=== PATIENT | female | born 1990 | race African-American/Black ===

== ENCOUNTER 2021-12-23 16:33 | Emergency (ER) | payer OTHER ==
[2021-12-23 16:41] VITALS: BP 100/64; PULSE 78; TEMP 98.6; BMI 34.9
[2021-12-23] MEDS ORDERED: METOCLOPRAMIDE HCL INJECTION 10 MG/2 ML VIAL IVPUSH ONE (17:17)
[2021-12-23] MEDS ORDERED: ACETAMINOPHEN 1000 MG/100 ML BAG IVPB ONE (17:17)
[2021-12-23] MEDS ORDERED: SODIUM CHLORIDE 1,000 ML IV STA (17:18)
[2021-12-23] MEDS ORDERED: ACETAMINOPHEN INJECTION 100 ML IVPB ONE (17:24)
[2021-12-23] MEDS ORDERED: METOCLOPRAMIDE HCL INJECTION 10 MG/2 ML VIAL ONE (17:24)
== END 2021-12-23 19:18 | disposition home or self-care (01) ==
LOC: JERFT 16:33
PROC: 3E033GC Introduction of Other Therapeutic Substance into Peripheral Vein, Percutaneous Approach (ICD-10-PCS; principal; 2021-12-23)
DX: G43.909 Migraine, unspecified, not intractable, without status migrainosus (principal); L30.9 Dermatitis, unspecified
CPT/HCPCS: 84703; 99284-25

== ENCOUNTER 2022-01-10 08:36 | Emergency (ER) | payer OTHER ==
[2022-01-10 08:47] VITALS: BP 105/61; PULSE 69; TEMP 97.9; BMI 34.9
[2022-01-10] MEDS ORDERED: ACETAMINOPHEN 1000 MG/100 ML BAG IVPB ONE (09:21)
[2022-01-10] MEDS ORDERED: ACETAMINOPHEN INJECTION 100 ML IVPB ONE (09:49)
[2022-01-10 10:37] LABS: PH,URINE 5.5 (5.0-8.0); URINE APPEARANCE CLEAR; URINE BILIRUBIN NEGATIVE (NEGATIVE); URINE COLOR YELLOW; URINE GLUCOSE (UA) NEGATIVE (NEGATIVE); URINE KETONE NEGATIVE (NEGATIVE); URINE LEUK ESTERASE NEGATIVE (NEGATIVE); URINE NITRITE NEGATIVE (NEGATIVE); URINE PROTEIN NEGATIVE (NEGATIVE); URINE UROBILINOGEN 0.2 mg/dL (0.2-1.0)
[2022-01-10 10:57] LABS: BASO % 0.3 % (0-2.0); EOS % 2.8 % (0-4.5); HEMATOCRIT 40.1 % (32.4-45.2); HEMOGLOBIN 12.9 GM/dL (10.7-15.3); LYMPH % 16.9 % (8-40); MCH 27.6 pg (25.7-33.7); MCHC 32.3 g/dl (32.0-36.0); MEAN CELL VOLUME 85.7 fl (80-96); MEAN PLT VOLUME 9.5 fl (7.5-11.1); MONO % 5.5 % (3.8-10.2); NEUT % 74.5 % (42.8-82.8); PLATELET COUNT 205 10^3/uL (134-434); RBC 4.68 M/mm3 (3.60-5.2); RDW 13.3 % (11.6-15.6); WHITE BLOOD COUNT 7.6 K/mm3 (4.0-10.0)
[2022-01-10 11:21] LABS: CHLORIDE 106 mmol/L (98-107); SODIUM 138 mmol/L (136-145)
[2022-01-10 11:23] LABS: ANION GAP 6 MMOL/L (8-16); BLOOD UREA NITROGEN 9.7 mg/dL (7-18); CALCIUM 8.9 mg/dL (8.5-10.1); CO2 26 mmol/L (21-32); GLUCOSE,RANDOM 83 mg/dL (74-106)
[2022-01-10 11:24] LABS: ALBUMIN 3.6 g/dl (3.4-5.0)
[2022-01-10 11:26] LABS: CREATININE 0.6 mg/dL (0.55-1.3); SGOT/AST 13 U/L (15-37)
[2022-01-10 11:28] LABS: BILIRUBIN,TOTAL 0.4 mg/dL (0.2-1)
[2022-01-10 11:29] LABS: ALK PHOS 57 U/L (45-117)
[2022-01-10 11:49] LABS: SGPT/ALT 18 U/L (13-61)
[2022-01-10] MEDS ORDERED: morphine CARPU-JECT 2 MG/1 ML DISP.SYRIN IVPUSH ONE (13:29)
== END 2022-01-10 14:00 | disposition home or self-care (01) ==
LOC: JER 08:36
PROC: 3E0333Z Introduction of Anti-inflammatory into Peripheral Vein, Percutaneous Approach (ICD-10-PCS; principal; 2022-01-10)
PROC: 3E033NZ Introduction of Analgesics, Hypnotics, Sedatives into Peripheral Vein, Percutaneous Approach (ICD-10-PCS; 2022-01-10)
DX: R10.2 Pelvic and perineal pain (principal)
CPT/HCPCS: 36415; 76830-TC; 80053; 81003; 84702; 85025; 87086; 99284-25

== ENCOUNTER 2022-01-15 10:58 | Emergency (ER) | payer OTHER ==
[2022-01-15 11:10] VITALS: BP 98/51; PULSE 89; TEMP 98.1; BMI 34.9
[2022-01-15] MEDS ORDERED: ONDANSETRON 4 MG/2 ML VIAL IVPUSH ONE (12:28)
[2022-01-15] MEDS ORDERED: morphine CARPU-JECT 4 MG/1 ML DISP.SYRIN IVPUSH ONE ×2 (12:28→14:21)
[2022-01-15] MEDS ORDERED: SODIUM CHLORIDE 1,000 ML IV STA (12:30)
[2022-01-15] MEDS ORDERED: morphine SULFATE 4 MG/ML VIAL ONE ×2 (12:31→14:56)
[2022-01-15] MEDS ORDERED: ONDANSETRON 4 MG/2 ML VIAL ONE (12:31)
[2022-01-15 12:58] LABS: BASO % 0.3 % (0-2.0); HEMOGLOBIN 12.2 GM/dL (10.7-15.3); LYMPH % 4.6 % (8-40); MCH 27.9 pg (25.7-33.7); MEAN CELL VOLUME 84.5 fl (80-96); MEAN PLT VOLUME 9.1 fl (7.5-11.1); MONO % 6.1 % (3.8-10.2); PLATELET COUNT 164 10^3/uL (134-434); RBC 4.37 M/mm3 (3.60-5.2); RDW 13.5 % (11.6-15.6); WHITE BLOOD COUNT 6.7 K/mm3 (4.0-10.0)
[2022-01-15 13:00] LABS: PH,URINE 6.5 (5.0-8.0); URINE APPEARANCE CLEAR; URINE BILIRUBIN NEGATIVE (NEGATIVE); URINE COLOR YELLOW; URINE GLUCOSE (UA) NEGATIVE (NEGATIVE); URINE KETONE NEGATIVE (NEGATIVE); URINE LEUK ESTERASE NEGATIVE (NEGATIVE); URINE NITRITE NEGATIVE (NEGATIVE); URINE PROTEIN NEGATIVE (NEGATIVE); URINE UROBILINOGEN 0.2 mg/dL (0.2-1.0)
[2022-01-15 13:08] LABS: HCG,QUALITATIVE URINE NEGATIVE
[2022-01-15 13:19] LABS: CALCIUM 8.5 mg/dL (8.5-10.1)
[2022-01-15 13:20] LABS: ALBUMIN 3.6 g/dl (3.4-5.0); BLOOD UREA NITROGEN 4.8 mg/dL (7-18)
[2022-01-15 13:22] LABS: CREATININE 0.5 mg/dL (0.55-1.3)
[2022-01-15 13:24] LABS: BILIRUBIN,TOTAL 0.6 mg/dL (0.2-1); TOT PROT 6.6 g/dl (6.4-8.2)
== END 2022-01-15 16:13 | disposition home or self-care (01) ==
LOC: JER 10:58
PROC: 3E033GC Introduction of Other Therapeutic Substance into Peripheral Vein, Percutaneous Approach (ICD-10-PCS; principal; 2022-01-15)
DX: N83.201 Unspecified ovarian cyst, right side (principal)
CPT/HCPCS: 36415; 76830-TC; 80053; 81003; 84703; 85025; 87077; 87086; 87186; 99284-25

== ENCOUNTER 2022-05-02 18:12 | Emergency (ER) | payer OTHER ==
[2022-05-02 18:17] VITALS: BP 96/63; PULSE 73; RESP 18; TEMP 97; BMI 35.9
[2022-05-02] MEDS ORDERED: ACETAMINOPHEN 500 MG TABLET (FP) PO ONE (19:36)
[2022-05-02] MEDS ORDERED: ACETAMINOPHEN 500 MG TABLET (FP) ONE (19:37)
== END 2022-05-02 20:40 | disposition home or self-care (01) ==
LOC: JER 18:12 → JERFT 18:12
DX: M54.50 Low back pain, unspecified (principal); V49.40XA Driver injured in collision with unspecified motor vehicles in traffic accident, initial encounter
CPT/HCPCS: 72100-TC-FY; 93005; 93010; 99284-25

== ENCOUNTER 2022-06-20 16:35 | Emergency (ER) | payer OTHER ==
[2022-06-20 16:58] VITALS: BP 103/68; PULSE 76; RESP 20; TEMP 97.9; BMI 36.8
[2022-06-20] MEDS ORDERED: ACETAMINOPHEN 1000 MG/100 ML BAG IVPB ONE (20:28)
[2022-06-20] MEDS ORDERED: SODIUM CHLORIDE 0.9% 500 ML INFUS.BAG IV ONE (20:28)
[2022-06-20] MEDS ORDERED: SUMATRIPTAN SUCCINATE 6 MG/0.5 ML VIAL SQ ONE (20:36)
[2022-06-20] MEDS ORDERED: METOCLOPRAMIDE HCL INJECTION 10 MG/2 ML VIAL IM ONE (20:36)
[2022-06-20] MEDS ORDERED: ACETAMINOPHEN 500 MG TABLET (FP) PO ONE (20:36)
[2022-06-20] MEDS ORDERED: ACETAMINOPHEN 325 MG TABLET (FP) ONE (20:45)
[2022-06-20] MEDS ORDERED: METOCLOPRAMIDE HCL INJECTION 10 MG/2 ML VIAL ONE (20:45)
== END 2022-06-20 21:48 | disposition left against medical advice (07) ==
LOC: JER 16:35
PROC: 3E023GC Introduction of Other Therapeutic Substance into Muscle, Percutaneous Approach (ICD-10-PCS; principal; 2022-06-20)
DX: R51.9 Headache, unspecified (principal)
CPT/HCPCS: 99284-25